=== PATIENT | male | born 1970 ===

== ENCOUNTER 2024-10-17 13:59 | Emergency (ER) | payer SELFPAY ==
[~2024-10-17] VITALS: Ht 170.2 cm; Wt 78.5 kg
[2024-10-17 14:57] VITALS: BP 136/86; PULSE 66; RESP 18; TEMP 93.2; O2SAT 98
== END 2024-10-17 15:33 | disposition left against medical advice (07) ==
LOC: ER 14:01
DX: F10.129 Alcohol abuse with intoxication, unspecified (principal); T68.XXXA Hypothermia, initial encounter; R41.82 Altered mental status, unspecified; Y90.9 Presence of alcohol in blood, level not specified
CPT/HCPCS: 99283; A6590